=== PATIENT | male | born 1930 | race Caucasian/White ===

== ENCOUNTER 2017-04-23 01:06 | Emergency (ER) | payer MEDICARE, BC ==
[2017-04-23] MEDS ORDERED: ASPIRIN 81 MG CHEW TAB PO ONE (01:24)
[2017-04-23 01:58] LABS: BASOPHILS % 1.1 (0.0-1.5); EOSINOPHILS % 2.6 % (0.0-6.8); MEAN CORPUSCULAR HEMOGLOBIN 29.7 pg (28.0-34.0); MEAN CORPUSCULAR VOLUME 90.4 fl (80.0-100.0); MONOCYTES % 6.3 % (0.0-11.0); NEUTROPHILS # 3.5 # k/uL (1.4-7.7)
[2017-04-23 02:15] LABS: eGFR (African) > 60; eGFR (Non-African) > 60
--- NOTE | 2017-04-23 02:31 | Diagnostic Imaging Report ---
ROGER AREVALO [facility] [address] [facility].[address] [id number] Report Submission Date: Apr 23, 2017 2:16:38 AM CDT Patient Study Name: POORNIMA VILLEGAS Date: Apr 23, 2017 2:05:51 AM CDT Modality Type: CR Gender: M Description: CHEST : 30 Institution: [facility] Physician: ROGER AREVALO Chest - one-view Clinical history: Chest pain. Findings: Examination of the chest in single portable AP view 04/23/2017 0205 hours with no prior films for comparison demonstrates lungs to be hypoventilated. Retrocardiac region is dense although this may be related to technique. The cardiac silhouette is prominent and the aorta is atherosclerotic. Degenerative changes are seen in the shoulders and thoracic vertebrae. Impression: 1. Hypoventilation. 2. Aortic atherosclerosis and left ventricular prominence. 3. Increased density in the retrocardiac left base suggesting left lower lobe infiltrate or atelectasis. Electronically signed on Apr 23, 2017 2:16:38 AM CDT by: Cy VORA
--- NOTE | 2017-04-23 06:31 | ED Physician Documentation ---
Chest Pain - HISTORIAN Historian: patient, spouse - HPI Stated Complaint: Chest pain Chief Complaint: Chest Pain Additional Information: onset mid substernal chest discomfort 2 days ago-mild sob no diaphoresis sl pain rt hand forearm-went away then ret tonite about 2230 came in to ed about 0100 this am but jhoan resolved at this time. this time there was no diaphoresis sob but mild rt arm and hand pain. no pain w/sob. pt recentlyu had basal cell removed from nose 3-4 days ago. totally asymptomatic at this time. Timing: gradual onset, gone now Duration: waxing, waning Last known Well Date: 04/20/17 Last Known Well Time: 12:00 Context: rest Severity: mild, moderate Quality: pressure, tightness, dull Chest Pain Radiation: arms (possibly rt arm-hand) Chest Pain Signs/Symptoms: denies: nausea, vomiting, diaphoresis Worsened By: exertion Relieved By: rest - ROS CONST: no problems MS/LYMPH: none EYES/ENT: denies: problems with vision SKIN/ENDO: other (recent basal cell removal) NEURO/PSYCH: none - PAST HX MD risk factors: hypertension Neuro deficit: none GI disease: none Lung disease: none Surgeries/Procedures: other (appy basal cell) Allergies/Adverse Reactions: Allergies Allergy/AdvReac Type Severity Reaction Status Date / Time No Known Drug Allergies Allergy Verified 04/23/17 01:40 - SOCIAL HX Smoking History: non-smoker Alcohol Use: none Drug Use: none - FAMILY HX Family HX: none - VITAL SIGNS Vital Signs: Vital Signs Temp Pulse Resp BP Pulse Ox 57 L 20 154/72 99 04/23/17 04:00 04/23/17 01:30 04/23/17 01:30 04/23/17 04:00 - REVIEWED ASSESSMENTS Nursing Assessment Reviewed: Yes Vitals Reviewed: Yes ED Results Lab/Radiology - Lab Results Lab Results: Lab Results 04/23/17 04/23/17 04/23/17 04:15 01:50 01:50 WBC RBC Hgb Hct MCV MCH MCHC RDW Plt Count Neut % (Auto) Lymph % (Auto) [place] % (Auto) Eos % (Auto) Baso % (Auto) Neut # (Auto) Lymph # (Auto) [place] # (Auto) Eos # (Auto) Baso # (Auto) Reactive Lymphs % Reactive Lymphs # Carbon Dioxide 30 mmol/L mmol/L (20-32) BUN 18 mg/dL mg/dL (10-26) Creatinine 0.8 mg/dL mg/dL (0.4-1.5) Estimated Creat Clear 99 Est GFR ( Amer) > 60 (60 - ) Est GFR (Non-Af Amer) > 60 (60 - ) Glucose 125 mg/dL H mg/dL (70-99) Calcium 9.4 mg/dL mg/dL (8.5-10.5) Total Bilirubin 0.3 mg/dL mg/dL (0.2-1.2) AST 26 U/L U/L (0-41) ALT 15 U/L U/L (0-45) Alkaline Phosphatase 73 U/L U/L (46-116) Creatine Kinase 123 U/L U/L (0-225) Troponin I 1.07 ng/mL H ng/mL 1.00 ng/mL H ng/mL (0.03-0.06) (0.03-0.06) Total Protein 6.9 g/dL g/dL (6.0-8.5) Albumin 4.2 g/dL g/dL (3.0-5.5) 04/23/17 01:50 WBC 7.30 K/ul K/ul (4.00-12.00) RBC 4.41 M/ul M/ul (3.90-5.20) Hgb 13.1 g/dL g/dL (12.0-18.0) Hct 39.8 % % (37.0-53.0) MCV 90.4 fl fl (80.0-100.0) MCH 29.7 pg pg (28.0-34.0) MCHC 32.9 g/dL g/dL (30.0-36.0) RDW 13.6 % % (11.3-14.3) Plt Count 178 K/mm3 K/mm3 (130-400) Neut % (Auto) 47.8 % % (39.0-79.0) Lymph % (Auto) 40.4 % % (16.0-50.0) [place] % (Auto) 6.3 % % (0.0-11.0) Eos % (Auto) 2.6 % % (0.0-6.8) Baso % (Auto) 1.1 (0.0-1.5) Neut # (Auto) 3.5 # k/uL # k/uL (1.4-7.7) Lymph # (Auto) 3.0 # k/uL # k/uL (0.6-4.0) [place] # (Auto) 0.5 # k/uL # k/uL (0.0-0.9) Eos # (Auto) 0.2 # k/uL # k/uL (0.0-0.6) Baso # (Auto) 0.1 # k/uL # k/uL (0.0-0.5) Reactive Lymphs % 1.7 % % (0.0-5.0) Reactive Lymphs # 0.1 # k/uL # k/uL (0.0-0.8) Carbon Dioxide BUN Creatinine Estimated Creat Clear Est GFR ( Amer) Est GFR (Non-Af Amer) Glucose Calcium Total Bilirubin AST ALT Alkaline Phosphatase Creatine Kinase Troponin I Total Protein Albumin - Radiology Radiology Impressions: cxr =no acute disese but cardiologists says sl congestion base - Orders Orders: ED Orders Category Date Time Status Continuous EKG monitoring Q30M Care 04/23/17 01:24 Active Continuous Pulse Oximetry Q30M Care 04/23/17 01:[address] IV Lock 1T Care 04/23/17 01:25 Active CHEST 1 VIEW [RAD] Stat Exams 04/23/17 01:24 Completed CBC/PLATELET/DIFF Routine Lab 04/23/17 01:50 Completed CMP Routine Lab 04/23/17 01:50 Completed CREATINE KINASE Routine Lab 04/23/17 01:50 Completed TROPONIN I (cTnI) Routine Lab 04/23/17 04:15 Completed TROPONIN I (cTnI) Stat Lab 04/23/17 01:50 Completed Aspirin Med 04/23/17 01:24 Discontinued 324 mg PO NOW ONE Oxygen Daily Oxygen 04/23/17 01:30 Ordered EKG WITH COMPARISON Stat Ther 04/23/17 Ordered EKG WITH COMPARISON Stat Ther 04/23/17 01:24 Ordered Chest Pain Physical Exam - EXAM General Appearance: no acute distress. No: anxious, lethargic EENT: eye inspection normal Neck: nml inspection, no carotid bruit Respiratory: no resp. distress CVS: reg. rate & rhythm, no murmur Abdomen: soft, non-tender Skin: warm/dry, normal color. No: cyanosis, diaphoresis, jaundice Extremities: non-tender, normal range of motion, edema (rt legfrom old chjildhood injury--lt ankle swells but lesser) Neuro: oriented X3, CN's nml as tested, motor nml, sensation nml, mood/affect nml, cognition normal Discharge Clincal Impression: intermittent chest pain, Basal cell carcinoma of skin, hx htn Referrals: Kellie Bates MD [Primary Care Provider] - 2 Days Comments: consul w/DR NAIR-will adm [facility]. PT ASYM AT THIS TIME. HIS TROPONIN SL ELEVATED EKG REV LBBB Condition: Good Disposition: 02 XFER [facility] HOS[facility] Decision to Admit: [id number] Decision Time: 06:29
[2017-04-23 07:13] VITALS: BP 148/77
== END 2017-04-23 07:05 | disposition short-term general hospital (02) ==
LOC: ED 01:06
DX: R07.89 Other chest pain (principal); C44.91 Basal cell carcinoma of skin, unspecified
CPT/HCPCS: 71010; 80053; 82550; 84484; 85025; 99283; S1016

== ENCOUNTER 2018-09-14 16:40 | Outpatient (CLI) | payer MEDICARE, BC | END 2018-09-14 16:42 | LOC: LABRHC 16:40 | PROVIDERS: ATTEND Family Medicine | DX: R30.0 Dysuria (principal); B96.4 Proteus (mirabilis) (morganii) as the cause of diseases classified elsewhere; B96.89 Other specified bacterial agents as the cause of diseases classified elsewhere; Z16.24 Resistance to multiple antibiotics | CPT/HCPCS: 87086 ==